=== PATIENT | female | born 1960 | race Caucasian/White ===

== ENCOUNTER 2017-07-03 07:05 | Day surgery (SDC) | payer OTHER ==
[~2017-07-03] VITALS: Ht 157.5 cm; Wt 80.3 kg
[2017-07-03] MEDS ORDERED: EXCEDRIN (08:20)
[2017-07-03] MEDS ORDERED: MIDAZOLAM 1 MG/ML 2 ML INJ ONE (08:47)
[2017-07-03] MEDS ORDERED: PROPOFOL 20 ML ONE (08:47)
[2017-07-03] MEDS ORDERED: LIDOCAINE 2% (SDV) 5 ML INJ ONE (08:47)
--- NOTE | 2017-07-03 09:29 | OPPN ---
Date/Time of Note Date/Time of Note DATE: 07/03/17 TIME: 09:28 Operative Report Preoperative Diagnosis Gastroesophageal reflux disease Screening Postoperative Diagnosis Hiatal hernia Reflux esophagitis with erosions Gastritis with erosions Sigmoid polyp was removed using biopsy forceps Internal hemorrhoids Operation/Procedure Performed Esophagogastroduodenoscopy and biopsy Colonoscopy and biopsy Surgeon see signature line geriatric assistant None Anesthesia: MAC Estimated blood loss: none Transfusion Required none Specimen Gastric mucosal biopsy Sigmoid polyp Grafts/Implants none Complications none TRI GARDUNO MD Jul 03, 2017 09:29
[2017-07-03 09:55] VITALS: BP 128/62; RESP 14
--- NOTE | 2017-07-04 02:30 | GILP ---
DATE OF PROCEDURE: NAME OF PROCEDURES: 1. Esophagogastroduodenoscopy and biopsy. 2. Colonoscopy and biopsy. SURGEON: Tri Brantley MD PREOPERATIVE DIAGNOSES: 1. Chronic heartburn. 2. Screening colonoscopy. POSTOPERATIVE DIAGNOSES: 1. Hiatal hernia. 2. Reflux esophagitis with erosions. 3. Gastritis with erosions. 4. Gastric mucosal biopsies were taken for Helicobacter pylori test. 5. Colonoscopy all the way to the cecum. 6. Sigmoid colon polyp was removed using biopsy forceps. 7. Internal hemorrhoids. INDICATION FOR THE PROCEDURE: Ms. Denia Pa is a 57-year-old female patient who carballo d chronic heartburn, not responding to therapy. She also needed screening colonoscopy. The procedures and possible complications were well explained to the patient, she understood and con sented to the procedures. DESCRIPTION OF PROCEDURE: Under the influence of anesthesia, the gastroscope was carefully introduc ed into the esophagus and under direct vision, it was advanced to the stomach and through the pyloru s into the duodenal bulb and descending duodenum. FINDINGS: ESOPHAGUS: The patient had hiatal hernia with reflux esophagitis and erosions. STOMACH: The patient had gastritis with erosions. Gastric mucosal biopsies were taken for H. pylor i test. DUODENUM: Normal. The colonoscope was carefully introduced in the rectum and under direct vision, it was advanced all the way to the cecum. FINDINGS: The patient had a small sigmoid colon polyp and it was removed using biopsy forceps. She was noted to have internal hemorrhoids. She tolerated the procedures very well and there was no complication from the procedures. At the en d of the procedures, she was awake with stable vital signs and she was discharged home to the care o f her family. IMPRESSION: Please see postoperative diagnoses. PLAN: 1. Omeprazole 40 mg p.o. q.a.m. 2. Await H. pylori test report. 3. Next screening colonoscopy in 5 years. Dictated By: TRI KAPLAN/BRAXTON Conf#: [id number] DID#: [id number]
== END 2017-07-03 10:52 | disposition home or self-care (01) ==
LOC: GIL 07:05
PROVIDERS: ATTEND Internal Medicine Gastroenterology
DX: Z12.11 Encounter for screening for malignant neoplasm of colon (principal); D12.5 Benign neoplasm of sigmoid colon; K44.9 Diaphragmatic hernia without obstruction or gangrene; K21.0 Gastro-esophageal reflux disease with esophagitis; K64.8 Other hemorrhoids; K29.60 Other gastritis without bleeding; I10 Essential (primary) hypertension; E66.9 Obesity, unspecified; Z68.32 Body mass index [BMI] 32.0-32.9, adult
CPT/HCPCS: 43239; 45380; J2250; Z7610

== ENCOUNTER 2017-11-06 17:19 | Emergency (ER) | END 2017-11-06 22:03 | disposition home or self-care (01) ==

== ENCOUNTER 2019-03-03 09:33 | Emergency (ER) | payer OTHER ==
[~2019-03-03] VITALS: Ht 157.5 cm; Wt 79.0 kg
[~2019-03-03 09:33] MED LIST: ASPI1TAB31 PO; DICY10CA40 PO; DOCU-144 PO; OMEP40CA6 PO; ONDA4TAB14 PO
[2019-03-03 09:36] VITALS: BP 148/63; PULSE 78; RESP 18; Ht 157.5 cm; Wt 79.0 kg
--- NOTE | 2019-03-03 09:55 | ERD ---
ER Documentation Chief Complaint Chief Complaint ERICK EYE ITCHING WITH REDNESS X 10 DAYS HPI Patient is a 58 years old female with no known past medical history presenting to the clinic for bilateral eye redness and itching X 10 days. Patient admits to using antibiotic eyedrops from Salmonella without resolution of symptoms. Patient denies crusting, eye discharge, eye pain. ROS All systems reviewed and are negative except as per history of present illness. Medications Home Meds Active Scripts Ondansetron (Ondansetron Odt) 4 Mg Tab.rapdis, 4 MG PO Q6H PRN for NAUSEA AND/OR VOMITING, #10 TAB Prov:ANNIE MELCHOR MD 11/06/17 Docusate Sodium* (Colace*) 100 Mg Capsule, 100 MG PO DAILY PRN for CONSTIPATION, #30 CAP Prov:ANNIE MELCHOR MD 11/06/17 Dicyclomine HCl (Dicyclomine HCl) 10 Mg Capsule, 10 MG PO TID PRN for abdominal cramping, #30 Prov:ANNIE MELCHOR MD 11/06/17 Reported Medications Omeprazole* (Omeprazole*) 40 Mg Capsule.dr, 40 MG PO DAILY, #30 CAP 11/06/17 Aspirin/Acetaminophen/Caffeine (Excedrin Migraine Caplet) 1 Each Tablet, 1 EACH PO Q4H, TAB 11/06/17 Allergies Allergies: Coded Allergies: No Known Allergy (Unverified , 03/03/19) PMhx/Soc History of Surgery: Yes (HYSTERECTOMY) Anesthesia Reaction: No Hx Neurological Disorder: No Hx Respiratory Disorders: No Hx Cardiac Disorders: Yes (HIGH CHOLESTEROL) Hx Psychiatric Problems: No Hx Miscellaneous Medical Probl: No Hx Alcohol Use: No Hx Substance Use: No Hx Tobacco Use: No Smoking Status: Never smoker FmHx Family History: No diabetes, No coronary disease, No other Physical Exam Vitals Vital Signs Date Temp Pulse Resp B/P (MAP) Pulse Ox O2 O2 Flow FiO2 Time Delivery Rate 03/03/19 98.1 78 18 148/63 99 09:36 (91) Physical Exam Const: No acute distress Head: Atraumatic Eyes: Conjunctiva erythematous bilaterally with epiphora that does not cross the limbus. No discharge or crusting noted. ENT: Normal External Ears, Nose and Mouth. Neck: Full range of motion. No meningismus. Resp: Clear to auscultation bilaterally Cardio: Regular rate and rhythm, no murmurs Neur: Awake and alert Psych: Normal Mood and Affect Procedures/MDM Patient was seen and evaluated for bilateral eye pruritus and redness which is most likely due to allergic conjunctivitis without complication. Patient is stable and ready for discharge. Follow-up with PCP. Patient will be discharged with Claritin and Patanol eyedrops. Departure Diagnosis: Primary Impression: Allergic conjunctivitis Laterality: bilateral Qualified Codes: H10.13 - Acute atopic conjunctivitis, bilateral Patient Instructions: Conjunctivitis, Allergic Referrals: [facility] Additional Instructions: Paciente aconseja volver a Departamento de urgencias inmediatamente para sntomas nuevos o que empeoran . Paciente aconseja posteriores con el PCP en 2-3 serrato . Paciente verbaliza la comprehensin y est de acuerdo con el tratamiento y el curso de accin. Si el paciente no tiene ninguna de atencin primaria pueden seguir con [facility] [address] [place] [address] [facility] + [address] [address] LUCIE CERVANTES PA-C Mar 03, 2019 09:55
[2019-03-03] MEDS ORDERED: OLOP5DRO12 BOTH EYES (09:56)
[2019-03-03] MEDS ORDERED: LORA5TAB4 PO (09:56)
== END 2019-03-03 10:12 | disposition home or self-care (01) ==
LOC: FTE 09:33
DX: H10.13 Acute atopic conjunctivitis, bilateral (principal); Z79.82 Long term (current) use of aspirin